=== PATIENT | male | born 1960 | race Caucasian/White ===

== ENCOUNTER 2019-10-27 12:45 | Emergency (ER) | payer SELFPAY ==
[2019-10-27 12:46] VITALS: TEMP 97.9
[2019-10-27 13:11] LABS: BASO # 0.1 (0.0-0.2); BASO % 0.5 % (0.0-2.0); EOS # 0.3 (0.0-0.7); EOS % 2.5 % (0-4.0); GRAN # 7.2 (1.4-6.5); HEMATOCRIT 42.6 % (42.0-52.0); LYMPH # 3.3 (1.2-3.4); MEAN CELL VOLUME 87 fl (80.0-100.0); MEAN CORPUSCULAR HEMOGLOBIN 29 pg (27.0-31.0); MEAN CORPUSCULAR HGB CONC 33 g/dl (33.0-37.0); MEAN PLATELET VOLUME 8.9 fl (7.4-10.4); MONO # 0.7 (0.1-0.6); MONO % 6.2 % (1.7-9.3); PLATELET COUNT 385 K/mm3 (130-400); RED BLOOD COUNT 4.89 M/mm3 (4.20-5.60); REDCELL DISTRIBUTION WIDTH-CV 12.9 % (11.5-14.5)
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
[2019-10-27 13:13] LABS: PROTHROMBIN TIME 11.1 SECONDS (9.7-12.8)
[2019-10-27 13:16] LABS: PARTIAL THROMBOPLASTIN TIME 33.5 SECONDS (26.0-37.0)
[2019-10-27 13:17] LABS: ALANINE AMINOTRANSFERASE 23 U/L (4-49); ALBUMIN 4.6 gm/dL (3.5-5.0); ALKALINE PHOSPHATASE 82 U/L (50-136); ANION GAP 9 mmol/L (7-16); AST,SGOT 29 U/L (15-37); BILIRUBIN,TOTAL 0.5 mg/dL (0.0-1.0); BLOOD UREA NITROGEN 15 mg/dL (9-20); CALCIUM 10.1 mg/dL (8.4-10.2); CARBON DIOXIDE 24 mmol/L (22-30); CHLORIDE 105 mmol/L (98-107); CREATININE, serum 0.78 (0.66-1.25); GLUCOSE 205 mg/dL (74-106); LIPASE 82 U/L (23-300); POTASSIUM 3.7 mmol/L (3.4-5.0); SODIUM 137 mmol/L (137-145); TOTAL PROTEIN 8.1 gm/dL (6.4-8.2)
[2019-10-27 13:36] LABS: TROPONIN-I < 0.012 ng/mL (0.000-0.035)
[2019-10-27 17:32] VITALS: BP 141/74; PULSE 80
[2019-10-27] MEDS ORDERED: NORCO 325 MG-51 TAB PO (17:48)
[2019-10-27] MEDS ORDERED: FLEXERIL 1010 MG/TAB PO (17:48)
== END 2019-10-27 18:18 | disposition home or self-care (01) ==
LOC: COL.ER 12:45
PROVIDERS: Emergency Medicine
DX: M54.5 Low back pain (principal); R40.2412 Glasgow coma scale score 13-15, at arrival to emergency department; V43.52XA Car driver injured in collision with other type car in traffic accident, initial encounter
CPT/HCPCS: J1170; J2060; J2550; J7030; Q9967